=== PATIENT | male | born 1950 | race Caucasian/White ===

== ENCOUNTER → 2016-11-19 | Outpatient (CLI) | payer BC ==
[~2016-11-19] MED LIST: ASPI81TA28 PO
--- NOTE | 2016-11-19 16:37 | DIAGNOSTIC IMAGING REPORT ---
CHEST 2 VIEWS ROUTINE HISTORY: COUGH COMPARISON: None. FINDINGS: The lungs are clear. Cardiac silhouette is normal in size. No pleural effusions. No pneumothorax. IMPRESSION: No acute process. Electronically signed by: Luis Donato M.D. 11/19/2016 4:35 PM Dictated Date/Time: 11/19/2016 4:34 PM
== END | disposition home or self-care (01) ==
LOC: C.RAD1850 16:11
PROVIDERS: ATTEND Family Medicine
DX: R05 Cough (principal)

== ENCOUNTER 2017-10-25 20:47 | Emergency (ER) | payer BC ==
[~2017-10-25] VITALS: Ht 177.8 cm; Wt 74.2 kg
[2017-10-25 20:49] VITALS: TEMP 36.5; O2SAT 95; Ht 177.8 cm; Wt 74.2 kg
[2017-10-25] MEDS ORDERED: METOPROLOL TARTRATE 1 MG/ML VIAL IV STA (20:59)
[2017-10-25] MEDS ORDERED: SODIUM CHLORIDE 0.9% 500ML 500 ML IV STA (21:00)
[2017-10-25] MEDS ORDERED: TPRSR/25 PO (21:28)
[2017-10-25] MEDS ORDERED: POTASSIUM OTC PO (21:28)
[2017-10-25 21:38] LABS: BASO % 0.3 %; BASO ABS # 0.02 K/uL (0-0.2); COMPLETE YES; EOS % 7.7 %; HEMATOCRIT 45.7 % (42-52); IG% 0.4 %; LYMPH % 22.8 %; LYMPH ABS # 1.82 K/uL (1.2-3.4); MEAN CELL VOLUME 94.4 fL (80-100); MEAN CORPUSCULAR HEMOGLOBIN 31.8 pg (25-34); MEAN CORPUSCULAR HGB CONC 33.7 g/dl (32-36); MEAN PLATELET VOLUME 9.9 fL (7.4-10.4); MONO % 8.7 %; NEUT % 60.1 %; PLATELET COUNT 219 K/uL (130-400); RED BLOOD COUNT 4.84 M/uL (4.7-6.1); WHITE BLOOD COUNT 7.97 K/uL (4.8-10.8)
--- NOTE | 2017-10-25 21:46 | DIAGNOSTIC IMAGING REPORT ---
CHEST ONE VIEW PORTABLE CLINICAL HISTORY: 67 years-old Male presenting with Evaluate Fever/Sepsis. TECHNIQUE: Portable upright AP view of the chest was obtained. COMPARISON: 11/19/2016. FINDINGS: Cardiomediastinal silhouette normal. Lungs and pleural spaces clear. Osseous structures normal. Upper abdomen normal. IMPRESSION: 1. No acute cardiopulmonary disease. Electronically signed by: Gwyn Alford M.D. 10/25/2017 9:44 PM Dictated Date/Time: 10/25/2017 9:44 PM
[2017-10-25 21:58] LABS: ALT/SGPT 19 U/L (12-78); BLOOD UREA NITROGEN 15 mg/dl (7-18); BUN/CREATININE RATIO 14.8 (10-20); CALCIUM 8.8 mg/dl (8.5-10.1); CARBON DIOXIDE 27 mmol/L (21-32); CHLORIDE 106 mmol/L (98-107); CREATININE 0.98 mg/dl (0.60-1.40); GLUCOSE 94 mg/dl (70-99); SODIUM 140 mmol/L (136-145)
[2017-10-25 22:00] LABS: PROTHROMBIN TIME (PATIENT) 10.5 SECONDS (9.0-12.0)
[2017-10-25 22:09] LABS: ALKALINE PHOSPHATASE 51 U/L (45-117); AST/SGOT 17 U/L (15-37); CKMB/CK RATIO 1.4 (0-3.0)
--- NOTE | 2017-10-25 22:51 | EMERGENCY ROOM VISIT NOTE ---
History Report prepared by Katia: Zbigniew Mohr Under the Supervision of: Dr. Pedro Muniz D.O. First contact with patient: 20:52 Chief Complaint: TACHYCARDIA Stated Complaint: ATRIAC TACHYCARDIA History of Present Illness The patient is a 67 year old male who presents to the Emergency Room with complaints of constant tachycardia starting this morning around 0800. The patient states that he feels like he has had an irregular heart rate starting this morning, and he took metoprolol, and this did not help like usual. He denies any chest pain, shortness of breath, dizziness, and light headedness. The patient denies any history of atrial fibrillation, though he states that he was diagnosed with atrial tachycardia. He is not currently on any blood thinners , and he does not take any other medications recently. Source of History: patient Onset: 0800 Position: other (heart) Quality: other (tachycardia) Timing: constant Associated Symptoms: No chest pain, No SOB Review of Systems See HPI for pertinent positives & negatives. A total of 10 systems reviewed and were otherwise negative. Past Medical & Surgical Medical Problems: (1) Atrial tachycardia Social History Smoking Status: Never Smoker Drug Use: none Marital Status: Housing Status: lives with family Occupation Status: employed Current/Historical Medications Scheduled Metoprolol Succinate (Metoprolol Succinate ER), 12.5 MG PO PRN UD [Potassium Otc], 1 TAB PO 2XWK Allergies Coded Allergies: No Known Allergies (Unverified , 07/23/13) Physical Exam Vital Signs Date Time Temp Pulse Resp B/P (MAP) Pulse Ox O2 Delivery O2 Flow Rate FiO2 10/25/17 22:26 70 10/25/17 22:25 65 10/25/17 22:00 72 89/60 10/25/17 21:10 74 10/25/17 20:59 91 87/62 10/25/17 20:49 36.5 75 18 84/50 95 Room Air Physical Exam CONSTITUTIONAL/VITAL SIGNS: Reviewed / noted above. GENERAL: Non-toxic in appearance. INTEGUMENTARY: Warm, dry, and [place]. HEAD: Normocephalic. EYES: without scleral icterus or trauma. ENT/OROPHARYNX: clear and moist. LYMPHADENOPATHY/NECK: Is supple without lymphadenopathy or meningismus. RESPIRATORY: Lungs clear and equal. CARDIOVASCULAR: Irregular rate and rhythm. GI/ABDOMEN: Soft and nontender. No organomegaly or pulsatile mass. No rebound or guarding. Normal bowel sounds. EXTREMITIES: Warm and well perfused. BACK: No CVA tenderness. NEUROLOGICAL: Intact without focal deficits. PSYCHIATRIC: normal affect. MUSCULOSKELETAL: Normally developed with good muscle tone. Medical Decision & Procedures ER Provider Diagnostic Interpretation: Radiology results as stated below per my review and radiologist interpretation: CHEST ONE VIEW PORTABLE CLINICAL HISTORY: 67 years-old Male presenting with Evaluate Fever/Sepsis. TECHNIQUE: Portable upright AP view of the chest was obtained. COMPARISON: 11/19/2016. FINDINGS: Cardiomediastinal silhouette normal. Lungs and pleural spaces clear. Osseous structures normal. Upper abdomen normal. IMPRESSION: 1. No acute cardiopulmonary disease. Electronically signed by: Gwyn Alford M.D. 10/25/2017 9:44 PM Dictated Date/Time: 10/25/2017 9:44 PM Laboratory Results 10/25/17 21:20 Red Blood Count 4.84, Mean Corpuscular Volume 94.4, Mean Corpuscular Hemoglobin 31.8, Mean Corpuscular Hemoglobin Concent 33.7, Mean Platelet Volume 9.9, Neutrophils (%) (Auto) 60.1, Lymphocytes (%) (Auto) 22.8, Monocytes (%) (Auto) 8.7, Eosinophils (%) (Auto) 7.7, Basophils (%) (Auto) 0.3, Neutrophils # (Auto) 4.80, Lymphocytes # (Auto) 1.82, Monocytes # (Auto) 0.69, Eosinophils # (Auto) 0.61, Basophils # (Auto) 0.02 10/25/17 21:20 Test 10/25/17 21:20 White Blood Count 7.97 K/uL (4.8-10.8) Red Blood Count 4.84 M/uL (4.7-6.1) Hemoglobin 15.4 g/dL (14.0-18.0) Hematocrit 45.7 % (42-52) Mean Corpuscular Volume 94.4 fL (80-100) Mean Corpuscular Hemoglobin 31.8 pg (25-34) Mean Corpuscular Hemoglobin Concent 33.7 g/dl (32-36) Platelet Count 219 K/uL (130-400) Mean Platelet Volume 9.9 fL (7.4-10.4) Neutrophils (%) (Auto) 60.1 % Lymphocytes (%) (Auto) 22.8 % Monocytes (%) (Auto) 8.7 % Eosinophils (%) (Auto) 7.7 % Basophils (%) (Auto) 0.3 % Neutrophils # (Auto) 4.80 K/uL (1.4-6.5) Lymphocytes # (Auto) 1.82 K/uL (1.2-3.4) Monocytes # (Auto) 0.69 K/uL (0.11-0.59) Eosinophils # (Auto) 0.61 K/uL (0-0.5) Basophils # (Auto) 0.02 K/uL (0-0.2) RDW Standard Deviation 46.6 fL (36.4-46.3) RDW Coefficient of Variation 13.5 % (11.5-14.5) Immature Granulocyte % (Auto) 0.4 % Immature Granulocyte # (Auto) 0.03 K/uL (0.00-0.02) Prothrombin Time 10.5 SECONDS (9.0-12.0) Prothromb Time International Ratio 1.0 (0.9-1.1) Activated Partial Thromboplast Time 26.6 SECONDS (21.0-31.0) Partial Thromboplastin Ratio 1.0 Anion Gap 7.0 mmol/L (3-11) Est Creatinine Clear Calc Drug Dose 76.6 ml/min Estimated GFR () 92.7 Estimated GFR (Non- 80.0 BUN/Creatinine Ratio 14.8 (10-20) Calcium Level 8.8 mg/dl (8.5-10.1) Total Bilirubin 0.3 mg/dl (0.2-1) Direct Bilirubin < 0.1 mg/dl (0-0.2) Aspartate Amino Transf (AST/SGOT) 17 U/L (15-37) Alanine Aminotransferase (ALT/SGPT) 19 U/L (12-78) Alkaline Phosphatase 51 U/L (45-117) Total Creatine Kinase 91 U/L (39-308) Creatine Kinase MB 1.3 ng/ml (0.5-3.6) Creatine Kinase MB Ratio 1.4 (0-3.0) Troponin I < 0.015 ng/ml (0-0.045) Total Protein 6.8 gm/dl (6.4-8.2) Albumin 3.6 gm/dl (3.4-5.0) Thyroid Stimulating Hormone (TSH) 2.730 uIu/ml (0.300-4.500) Laboratory results as stated above per my review. Medications Administered Medications (Trade) Dose Ordered Sig/Nick Route Start Time Stop Time Status Last Admin Dose Admin Sodium Chloride 500 ml @ 999 mls/hr Q31M STAT IV 10/25/17 21:00 10/25/17 21:30 DC 10/25/17 21:00 999 MLS/HR ECG Indication: tachycardia Rate (beats per minute): 111 Rhythm: atrial fibrillation Findings: no ectopy, other (No acute injury) ED Course 2051: Previous medical records were reviewed. The patient was evaluated in room C10. A complete history and physical examination was performed. 2100: Sodium Chloride 500 ml @ 999 mls/hr IV 0: I discussed the patient's case with Dr. Garland - Cardiology, and he states that the patient can follow up, and he should take an aspirin. 5: On reevaluation, the patient is doing well. I discussed the results and findings with the patient. He verbalized agreement of the treatment plan. He was discharged home. Medical Decision the differential was considered includes acute myocardial infarction, acute coronary syndrome, myocarditis, pericarditis, pericardial effusions /tamponade, esophageal perforation, thoracic aortic dissection, pulmonary embolism, pneumonia, pneumothorax, pancreatitis, shingles, acute cholecystitis, perforated abdominal viscus. This is a 67-year-old male who presents to the ED with a chief complaint of palpitations. The patient states that this happens intermittently and has been going on for some time. His developer relations manager, Dr. Marcos, has placed him on beta blockers. The patient states that he is supposed to be taking it daily but only takes it periodically. He states that he only takes it periodically when needed for palpitations. He states that he has been told that he has atrial tachycardia. He denies being told atrial fibrillation. The patient states that he took a dose of the metoprolol earlier today and then again this afternoon but his symptoms have persisted with regards to palpitations. He denies being lightheaded or disease. He denies any chest pains or shortness of breath. His physical exam reveals an irregular heart rate otherwise normal. A twelve-lead EKG reveals atrial fibrillation with a rate in the low 100 range. The patient's rate ranged from the 70s to low 100s during his stay. Looking at the monitor, he periodically was in a normal sinus rhythm at times but predominantly atrial fibrillation. The patient, during his stay, had a blood pressure in the high 80s to low 100s. He was not symptomatic with this with regards to lightheadedness or dizziness. His last blood pressure was 99 systolic. The blood work was unremarkable. TSH and cardiac enzymes are normal. He is not anemic. Chest x-ray did not show acute disease. There were no ischemic changes on the EKG. I spoke with Dr. Botello about the patient. The patient is not felt to require admission at this time. His [id number] score was 1. He was advised to take an aspirin a day. He was advised to take his metoprolol as prescribed. He was told to contact the developer relations manager's office next week for follow-up next week. He is felt to be stable for discharge. Medication Reconcilliation Current Medication List: was personally reviewed by me Blood Pressure Screening Patient's blood pressure: Low blood pressure Consults Time Called: [id number] Consulting Physician: Dr. Botello - Cardiology Returned Call: [phone] I discussed the patient's case with Dr. Garland - Cardiology, and he states that the patient can follow up, and he should take an aspirin. Impression Primary Impression: Atrial fibrillation Scribe Attestation The scribe's documentation has been prepared under my direction and personally reviewed by me in its entirety. I confirm that the note above accurately reflects all work, treatment, procedures, and medical decision making performed by me. Departure Information Dispostion Home / Self-Care Referrals Elder Ramesh MD (PCP) Forms HOME CARE DOCUMENTATION FORM, IMPORTANT VISIT INFORMATION, WORK / SCHOOL INSTRUCTIONS Patient Instructions Atrial Fibrillation Dc, My [facility] Last Second Tickets Additional Instructions Take an aspirin a day. Enteric coated aspirin is easier on the stomach. Take your metoprolol as prescribed. Follow-up with your developer relations manager next week. Call Saturday for an appointment. Let them know that your here and that you have atrial fibrillation. Return to the emergency department for worsening or new symptoms or any concerns. You have been examined and treated today on an emergency basis only. This is not a substitute for, or an effort to provide, complete comprehensive medical care. It is impossible to recognize and treat all injuries or illnesses in a single emergency department visit. It is therefore important that you follow up closely with your doctor. Call as soon as possible for an appointment.
[2017-10-25 23:00] VITALS: BP 103/71; PULSE 79
== END 2017-10-25 23:00 | disposition home or self-care (01) ==
LOC: C.EDB 20:48 → C.EDC 23:00
DX: I48.91 Unspecified atrial fibrillation (principal); I47.1 Supraventricular tachycardia